=== PATIENT | male | born 1990 | race African-American/Black ===

== ENCOUNTER 2018-12-18 11:54 | Emergency (ER) | payer OTHER ==
[~2018-12-18] VITALS: Ht 185.4 cm; Wt 64.4 kg
[2018-12-18 12:02] VITALS: BP 137/86
--- NOTE | 2018-12-18 12:04 | NUR ---
ED Nurse Note: PT WALKED IN TO ER TODAY FROM HOME. AOX4. PT PRESENTS WITH LACERATION DORSAL SURFACE OF LEFT WRIST AFTER TRYING TO CUT A COCONUT X 1 HOUR AGO. PT C/O PAIN, 03/02. SITE NOT ACTIVELY BLEEDING AT THIS TIME. CIRCULATION AND SENSATION INTACT, CAP REFILL <3 SECONDS, FULL ROM OF WRIST AND DIGITS, MUSCLE STRENGTH 5/5.
[2018-12-18] MEDS ORDERED: Lidocaine 1% 10mg/ml/Epi 0.005mg/ml 30ml vial INJ ONE (12:30)
--- NOTE | 2018-12-18 12:38 | Emergency Room Report ---
History of Present Illness General Chief Complaint: Laceration Source: Patient Present Illness HPI 28-year-old male presents to the emergency department complaining of 6 out of 10 in severity localized tenderness and open wound to the dorsum of the left wrist times one hour. Patient reports he sustained this injury while cutting open a coconut. Patient states he is up-to-date with tetanus vaccination he denies taking blood thinning medications he reports palpation and movement does exacerbate his pain he states rest helps minimally reduce his pain. No other modifying factors at this time. Allergies: Coded Allergies: No Known Allergies (Unverified , 12/18/18) Patient History Past Medical History: see triage record Past Surgical History: none Pertinent Family History: none Immunizations: UTD Reviewed Nursing Documentation: PMH: Agreed; PSxH: Agreed Nursing Documentation-PMH Past Medical History: No Stated History Review of Systems All Other Systems: negative except mentioned in HPI Physical Exam Vital Signs Date Time Temp Pulse Resp B/P (MAP) Pulse Ox O2 Delivery O2 Flow Rate FiO2 12/18/18 11:58 98.2 55 20 137/86 99 Room Air Sp02 EP Interpretation: reviewed, normal General Appearance: no apparent distress, alert, GCS 15, non-toxic Head: normocephalic, atraumatic Eyes: bilateral eye normal inspection, bilateral eye PERRL ENT: hearing grossly normal, normal voice Neck: full range of motion Respiratory: lungs clear, normal breath sounds, speaking full sentences Cardiovascular #1: regular rate, rhythm, normal capillary refill Cardiovascular #2: 2+ radial (R), 2+ radial (L) Musculoskeletal: back normal, gait/station normal, normal range of motion, non- tender Neurologic: alert, oriented x3, responsive, motor strength/tone normal, sensory intact, speech normal, grossly normal Psychiatric: judgement/insight normal Skin: normal color, no rash, warm/dry, well hydrated, other - small 1cm skin avulsion just distal to the laceration on the dorsum of the left wrist. , laceration - Dorsal left wrist ( flap/avulsion) laceration approx 6cm cm in length Procedures Laceration/Wound Repair Laceration/Wound Repair : Consent: Verbal Wound Location: upper extremity - dorsal left wrist ( flap/avulsion) laceration approx 6cm cm in length Wound's Depth, Shape: flap Wound Length (cm): 6 Wound Explored: clean Irrigated w/ Saline (ccs): 1000 Anesthesia: Lidocaine w/ Epi Wound Repaired With: sutures Suture Size/Type: 4:0 Number of Sutures: 8 Layer Closure?: No Sterile Dressing Applied?: Yes Splint Applied?: Yes Type of Splint Applied: LEft WRIST Sling Applied?: Yes Patient Tolerated: Well Complications: None Medical Decision Making PA Attestation Dr. Ahuja is my supervising Physician whom patient management has been discussed with. Diagnostic Impression: Primary Impression: Laceration Additional Impression: Skin avulsion ER Course 28-year-old male presents to the emergency department complaining of 6 out of 10 in severity localized tenderness and open wound to the dorsum of the left wrist times one hour. Patient reports he sustained this injury while cutting open a coconut. Patient states he is up-to-date with tetanus vaccination he denies taking blood thinning medications he reports palpation and movement does exacerbate his pain he states rest helps minimally reduce his pain. No other modifying factors at this time. Ddx considered but are not limited to laceration, tendon injury, cellulitis, amputation Vital signs: are WNL, pt. is afebrile H&PE are most consistent with: dorsal left wrist ( flap/avulsion) laceration approx 6cm cm in length ORDERS: none required at this time, the diagnosis is clinical ED INTERVENTIONS: - The wound was copiously irrigated with normal saline, and explored for foreign body for which no FB was found. - pt. is anesthetized with 1%lidocaine w. epi. - The wound was approximated and closed using 8 interrupted (* 1 verticle mattress in the middle of the wound) Ethilon sutures. -Bacitracin and sterile dressing is applied. Left Wrist Splint applied by technician helper instrument. Pt. remains neurovascularly intact. Discussed with patient: That we make every effort to approximate the laceration as best as we can so that scarring will be as cosmetically pleasing as possible with our limited cosmetic skill set in the Emergency dept. Regardless of our best efforts there will be scarring after laceration repair. The extent of scarring is unknown at this time. DISCHARGE: At this time pt. is stable for d/c to home. Will provide printed patient care instructions, and any necessary prescriptions. Care plan and follow up instructions have been discussed with the patient prior to discharge. Last Vital Signs Date Time Temp Pulse Resp B/P (MAP) Pulse Ox O2 Delivery O2 Flow Rate FiO2 12/18/18 12:02 98.2 55 20 137/86 99 Room Air Status: improved Disposition: HOME, SELF-CARE Condition: Stable Patient Instructions: Laceration Care, Adult Additional Instructions: Take medications as directed. SUTURES TO BE REMOVED IN _10 _ DAYS Follow up with a Primary Care Provider in 3-5 days, even if your symptoms have resolved. --Please review list of primary care clinics, if you do not already have a primary care provider Return sooner to ED if new symptoms occur, or current symptoms become worse. - Please note that this Emergency Department Report was dictated using [employer] Block[employer] mechanic technology software, occasionally this can lead to erroneous entry secondary to interpretation by the dictation equipment. Marianne Tamayo Dec 18, 2018 12:38
[2018-12-18 13:20] VITALS: BP 124/73
[2018-12-18] MEDS ORDERED: BACITRACIN-P28.35 GM TP (13:24)
[2018-12-18] MEDS ORDERED: CEPHALEXIN500 MG ORAL (13:24)
[2018-12-18] MEDS ORDERED: Bacitracin Oint UD TOPIC ONE (13:30)
--- NOTE | 2018-12-18 13:32 | NUR ---
ED Nurse Note: PT SITTING PEACEFULLY IN BED IN NAD. AOX4. PRESCRIPTIONS AND DISCHARGE PAPERWORK EXPLAINED TO PT. PT VERBALIZES UNDERSTANDING AND ALL QUESTIONS ANSWERED. PRESCRIPTIONS AND DISCHARGE PAPERWORK GIVEN TO PT AND ID WRISTBAND REMOVED. PT WALKED OUT OF ER WITH STEADY GAIT AND ALL BELONGINGS.
== END 2018-12-18 13:32 | disposition home or self-care (01) ==
LOC: EMR 12:15
DX: S61.512A Laceration without foreign body of left wrist, initial encounter (principal); W45.8XXA Other foreign body or object entering through skin, initial encounter; Y92.89 Other specified places as the place of occurrence of the external cause
CPT/HCPCS: 99283

== ENCOUNTER 2018-12-30 12:49 | Emergency (ER) | payer OTHER ==
[~2018-12-30] VITALS: Ht 185.4 cm; Wt 65.8 kg
[~2018-12-30 12:49] MED LIST: BACITRACIN-P28.35 GM TP; CEPHALEXIN500 MG ORAL
--- NOTE | 2018-12-30 12:58 | NUR ---
ED Nurse Note: Pt present in the ER for suture removal, got suture done on 12/18/18. Pain /10. Will cont to monitor.
[2018-12-30 12:59] VITALS: BP 114/78
--- NOTE | 2018-12-30 13:26 | Emergency Room Report ---
History of Present Illness General Chief Complaint: Wound Recheck/Suture Removal Source: Patient Present Illness HPI 28-year-old male presents to the emergency department complaining of having previously close laceration that requires suture removal. Patient had wound closure performed on the dorsum of the left wrist 12 days ago. Patient denies discharge, erythema, warmth, fevers or chills. Patient states he is up-to-date with his tetanus vaccinations. Patient reports 2 out of 10 in severity tenderness at this time is only exacerbated with palpation. He has no other medical complaints, no other aggravating or relieving factors. Allergies: Coded Allergies: No Known Allergies (Unverified , 12/18/18) Patient History Past Medical History: see triage record Past Surgical History: none Pertinent Family History: none Immunizations: UTD Reviewed Nursing Documentation: PMH: Agreed; PSxH: Agreed Nursing Documentation-PMH Past Medical History: No Stated History Review of Systems All Other Systems: negative except mentioned in HPI Physical Exam Vital Signs Date Time Temp Pulse Resp B/P (MAP) Pulse Ox O2 Delivery O2 Flow Rate FiO2 12/30/18 12:53 98.1 68 20 114/78 98 Room Air Sp02 EP Interpretation: reviewed, normal General Appearance: no apparent distress, alert, GCS 15, non-toxic Head: normocephalic, atraumatic Eyes: bilateral eye normal inspection, bilateral eye PERRL ENT: hearing grossly normal, normal voice Neck: full range of motion Respiratory: lungs clear, normal breath sounds, speaking full sentences Cardiovascular #1: regular rate, rhythm Gastrointestinal: soft, no mass Musculoskeletal: back normal, gait/station normal, normal range of motion, non- tender Neurologic: alert, oriented x3, responsive, motor strength/tone normal, sensory intact, speech normal, grossly normal Psychiatric: judgement/insight normal Skin: normal color, no rash, warm/dry, well hydrated, wd healing/no infection noted - Dorsal left wrist Medical Decision Making PA Attestation Dr. booker is my supervising Physician whom patient management has been discussed with. Diagnostic Impression: Primary Impression: Encounter for removal of sutures ER Course 28-year-old male presents to the emergency department complaining of having previously close laceration that requires suture removal. Patient had wound closure performed on the dorsum of the left wrist 12 days ago. Patient denies discharge, erythema, warmth, fevers or chills. Patient states he is up-to-date with his tetanus vaccinations. Patient reports 2 out of 10 in severity tenderness at this time is only exacerbated with palpation. He has no other medical complaints, no other aggravating or relieving factors. Ddx considered but are not limited to laceration, tendon injury, cellulitis, dehiscence. Vital signs: are WNL, pt. is afebrile H&PE are most consistent with: healing laceration of the dorsal left wrist ORDERS: none required at this time, the diagnosis is clinical ED INTERVENTIONS: - 3 Sutures removed. [address], pt. to return in 4-5 days for removal of remaining sutures. pt. told to keep wrist splint on . he reports he did not use it. will dispense an additional splint. -Left wrist Splint applied by microelectronics technician. Pt. remains neurovascularly intact. DISCHARGE: At this time pt. is stable for d/c to home. Will provide printed patient care instructions, and any necessary prescriptions. Care plan and follow up instructions have been discussed with the patient prior to discharge. Last Vital Signs Date Time Temp Pulse Resp B/P (MAP) Pulse Ox O2 Delivery O2 Flow Rate FiO2 12/30/18 12:59 98.1 68 20 114/78 98 Room Air Disposition: HOME, SELF-CARE Condition: Stable Scripts Bacitracin/Polymyxin B Sulfate (BACITRACIN-POLYMYXIN OINTMENT) 28.35 Gm Oint...g. 1 APPLIC TP BID, #28.3 GM Prov: Marianne Tamayo 12/30/18 Patient Instructions: Suture Removal, Care After Additional Instructions: Take medications as directed. Return for removal of remaining sutures in 4-5 days. Follow up with a Primary Care Provider in 3-5 days, even if your symptoms have resolved. --Please review list of primary care clinics, if you do not already have a primary care provider Return sooner to ED if new symptoms occur, or current symptoms become worse. - Please note that this Emergency Department Report was dictated using [employer] therapist technology software, occasionally this can lead to erroneous entry secondary to interpretation by the dictation equipment. Marianne Tamayo Dec 30, 2018 13:26
[2018-12-30] MEDS ORDERED: BACITRACIN-P28.35 GM TP (13:28)
[2018-12-30 15:06] VITALS: BP 114/78
--- NOTE | 2018-12-30 15:07 | NUR ---
ED Nurse Note:pt. had dry dressing and wrist splint placed on left wrist, then pt. recevied d/c instructions will f/u with PMD and left ER with steady gait
== END 2018-12-30 14:50 | disposition home or self-care (01) ==
LOC: EMR 13:57
DX: S61.512A Laceration without foreign body of left wrist, initial encounter (principal); Z48.02 Encounter for removal of sutures; X58.XXXA Exposure to other specified factors, initial encounter; Y92.9 Unspecified place or not applicable
CPT/HCPCS: 29125; 99283

== ENCOUNTER 2019-01-07 15:59 | Emergency (ER) | payer OTHER ==
[~2019-01-07] VITALS: Ht 185.4 cm; Wt 65.8 kg
--- NOTE | 2019-01-07 16:09 | NUR ---
ED Nurse Note: Pt came into the Er for suture removal on the left hand. Complaining of 4/10 pain in the area. Non radiating. Pt is A + O x4. Ambulatory. Skin warm to touch.
[2019-01-07 16:10] VITALS: BP 125/82
--- NOTE | 2019-01-07 16:36 | Emergency Room Report ---
History of Present Illness General Chief Complaint: Wound Recheck/Suture Removal Source: Patient Present Illness HPI 28-year-old male presents to the emergency department for suture removal of sutures are placed in the left hand approximately 3 weeks ago. Patient did present 2 weeks after suture placement and several sutures were removed however wound did begin to open slightly and collaboratively that she was made to leave the sutures in for another week. Patient denies pain at this time he denies bleeding, discharge, fevers, chills, erythema or warmth. Allergies: Coded Allergies: No Known Allergies (Unverified , 12/18/18) Patient History Past Medical History: see triage record Past Surgical History: none Pertinent Family History: none Reviewed Nursing Documentation: PMH: Agreed; PSxH: Agreed Nursing Documentation-PMH Past Medical History: No Stated History Review of Systems All Other Systems: negative except mentioned in HPI Physical Exam Vital Signs Date Time Temp Pulse Resp B/P (MAP) Pulse Ox O2 Delivery O2 Flow Rate FiO2 01/07/19 16:05 97.9 50 18 129/80 100 Room Air Sp02 EP Interpretation: reviewed, normal General Appearance: no apparent distress, alert, GCS 15, non-toxic Head: normocephalic, atraumatic Eyes: bilateral eye normal inspection, bilateral eye PERRL ENT: hearing grossly normal, normal voice Neck: full range of motion Respiratory: lungs clear, normal breath sounds, speaking full sentences Cardiovascular #1: regular rate, rhythm, normal capillary refill Cardiovascular #2: 2+ radial (L) Musculoskeletal: back normal, gait/station normal, normal range of motion, non- tender Neurologic: alert, oriented x3, responsive, motor strength/tone normal, sensory intact, speech normal, grossly normal Psychiatric: judgement/insight normal Skin: normal color, no rash, warm/dry, well hydrated, laceration - Left hand ( Dorsum) . Medical Decision Making PA Attestation Dr. Koch is my supervising Physician whom patient management has been discussed with. Diagnostic Impression: Primary Impression: Encounter for removal of sutures ER Course 28-year-old male presents to the emergency department for suture removal of sutures are placed in the left hand approximately 3 weeks ago. Patient did present 2 weeks after suture placement and several sutures were removed however wound did begin to open slightly and collaboratively that she was made to leave the sutures in for another week. Patient denies pain at this time he denies bleeding, discharge, fevers, chills, erythema or warmth. Ddx considered but are not limited to laceration, tendon injury, cellulitis, dehiscence. Vital signs: are WNL, pt. is afebrile H&PE are most consistent with: healed laceration of the Left hand ORDERS: none required at this time, the diagnosis is clinical ED INTERVENTIONS: - 5 Sutures removed. DISCHARGE: At this time pt. is stable for d/c to home. Will provide printed patient care instructions, and any necessary prescriptions. Care plan and follow up instructions have been discussed with the patient prior to discharge. Last Vital Signs Date Time Temp Pulse Resp B/P (MAP) Pulse Ox O2 Delivery O2 Flow Rate FiO2 01/07/19 16:10 98.0 65 20 125/82 98 Room Air Status: improved Disposition: HOME, SELF-CARE Condition: Stable Patient Instructions: Suture Removal, Care After Additional Instructions: Take any previously prescribed medications as directed. Return sooner to ED if new symptoms occur, or current symptoms become worse. - Please note that this Emergency Department Report was dictated using Malu[employer]ipal scientist technology software, occasionally this can lead to erroneous entry secondary to interpretation by the dictation equipment. Marianne Tamayo Jan 07, 2019 16:36
[2019-01-07 16:41] VITALS: BP 120/81
--- NOTE | 2019-01-07 16:42 | NUR ---
ER DISCHARGE NOTE: Patient is cleared to be discharged per ERMD, pt is aox4, on room air, with stable vital signs. pt was given dc and prescription instructions, pt was able to verbalize understanding, pt id band removed without complications. pt is able to ambulate with steady gait. pt took all belongings.
== END 2019-01-07 16:45 | disposition home or self-care (01) ==
LOC: EMR 16:30
DX: S61.412A Laceration without foreign body of left hand, initial encounter (principal); X58.XXXA Exposure to other specified factors, initial encounter; Y93.9 Activity, unspecified; Y92.9 Unspecified place or not applicable; Z48.02 Encounter for removal of sutures
CPT/HCPCS: 99281